=== PATIENT | female | born 1990 | race Caucasian/White ===

== ENCOUNTER 2016-08-20 19:51 | Emergency (ER) | payer OTHER ==
[~2016-08-20] VITALS: Ht 170.2 cm; Wt 76.2 kg
[2016-08-20] MEDS ORDERED: OMEGA PO (20:25)
[2016-08-20] MEDS ORDERED: amoxicillin (20:25)
[2016-08-20] MEDS ORDERED: prenatal PO (20:25)
[2016-08-21] MEDS ORDERED: ACETAMINOPHEN TAB 650MG DOSE (2X325MG) PO ONE (08:45)
--- NOTE | 2016-08-21 09:19 | REP ---
MRI LEFT KNEE WITHOUT CONTRAST: 08/21/2016 CLINICAL HISTORY: Severe knee pain and swelling after trauma. Patient 6 months . Request through the ED with patient signing consent form. TECHNIQUE: Sagittal T1, T2 STIR and gradient echo images, axial fat suppressed PD with coronal PD and fat suppressed PD sequences provided. FINDINGS: No prior study. The PCL shows intact fibers. There is abnormal increased signal in the ACL and I suggest a partial tear proximally. There is some fluid in the intercondylar notch. There is slight laxity of the ACL in its mid to distal fibers. Intrameniscal degenerative type signal in the posterior horn of the medial meniscus without communication to an articular surface but the intrameniscal signal extends to the posterior and the peripheral margin of the meniscus. No loose body. There is no chondromalacia or osteochondral defect. There is abnormal signal and a the tear of the MCL at its junction with the medial patellar retinaculum. Edema and fluid is seen on both sides of the MCL and retinaculum with the bowing of the retinaculum by bursal fluid adjacent to the peripheral margin of the medial femoral condyle. The lateral meniscus shows a parrot-beak type tear in the body the meniscus seen best on the sagittal images. There is no tear communicating to an articular surface from the substance of the anterior posterior horn. There is no loose body or chondromalacia. No osteochondral defect. There is a small bone bruise in the femoral condyle anterolaterally. There is also strain of the LCL fluid in the bursa along the lateral femoral condyle deep to the patellar retinaculum. Fluid tracks posteriorly along the lateral head of the gastrocnemius muscle. The popliteus tendon and proximal tibial - fibular articulation are normal. No patellar chondromalacia. Mild chondromalacia in the trochlea. Large suprapatellar effusion. There is no tear of the quadriceps or patellar tendons. IMPRESSION: 1. Acute injury with at least high grade partial tear of the ACL. PCL intact. 2. Meniscocapsular injury posterior horn medial meniscus without tear extending to the articular surface. Lateral meniscus with a parrot-beak type tear in the body of the meniscus. No displaced meniscal fragment or loose body. 3. Tears of the MCL and patellar retinaculum at the anterior band of the MCL. Strain of the LCL. 4. Large joint effusion. 5. No loose body. Extensor mechanism intact. Bone bruise lateral femoral condyle. No visible fracture. Signed by Aroldo Hines MD 08/21/2016 05:47 P
[2016-08-21] MEDS ORDERED: OXYC1TAB23 PO (09:27)
[2016-08-21 09:47] VITALS: BP 111/61
--- NOTE | 2016-08-22 10:28 | ED PDOC ---
Post-Departure Follow-Up ft [facility] faxed formal report of mri knee for fu Jose Maria Eldridge MD Aug 22, 2016 10:27
== END 2016-08-21 10:30 | disposition home or self-care (01) ==
LOC: M ED 21:07
DX: M25.462 Effusion, left knee (principal); S83.512A Sprain of anterior cruciate ligament of left knee, initial encounter; S83.412A Sprain of medial collateral ligament of left knee, initial encounter; W55.89XA Other contact with other mammals, initial encounter; Y92.830 Public park as the place of occurrence of the external cause; Y93.89 Activity, other specified; Y99.8 Other external cause status; Z79.899 Other long term (current) drug therapy; Z3A.01 Less than 8 weeks gestation of pregnancy

== ENCOUNTER → 2016-10-06 | Outpatient (CLI) | payer OTHER ==
[~2016-10-06] MED LIST: OMEGA PO; OXYC1TAB23 PO; amoxicillin; prenatal PO
[2016-10-06 17:26] LABS: BASO % 0.2 % (0.0-1.0); EOS # 0.2 K/mm3 (0.0-0.50); EOS % 1.7 % (0.0-3.0); LARGE UNSTAINED CELL # 0.1 K/mm3 (0.0-0.4); LARGE UNSTAINED CELL % 0.8 % (0.0-4.0); LYMPH # 1.5 K/mm3 (1.5-6.5); LYMPH % 15.6 % (24.0-44.0); MEAN CORPUSCULAR HEMOGLOBIN 32.5 pg (27.0-33.0); MEAN CORPUSCULAR HGB CONC 34.4 g/dl (32.0-36.5); MEAN CORPUSCULAR VOLUME 94.6 fl (80.0-96.0); MONO # 0.5 K/mm3 (0.0-0.8); MONO % 4.8 % (0.0-5.0); NEUTROPHILS # 7.5 K/mm3 (1.8-7.7); NEUTROPHILS % 76.9 % (36.0-66.0); PLATELET COUNT, AUTOMATED 236 k/mm3 (150-450); RED CELL DISTRIBUTION WIDTH 13.1 % (11.5-14.5); WHITE BLOOD COUNT 9.7 K/mm3 (4.0-10.0)
== END ==
LOC: M LAB 15:46
PROVIDERS: ATTEND Advanced Practice Midwife
DX: Z36 Encounter for antenatal screening of mother (principal); Z3A.00 Weeks of gestation of pregnancy not specified

== ENCOUNTER → 2016-11-17 | Outpatient (REF) | payer OTHER | LOC: M LAB REF 16:59 | PROVIDERS: ATTEND Advanced Practice Midwife | DX: Z34.83 Encounter for supervision of other normal pregnancy, third trimester (principal) ==

== ENCOUNTER 2016-12-13 12:44 | Inpatient (IN) | payer OTHER ==
[2016-12-13] VITALS (32 sets, daily range): BP systolic 100–142; BP diastolic 55–80
[~2016-12-13] VITALS: Ht 170.2 cm; Wt 82.0 kg
[2016-12-13 13:59] LABS: MEAN CORPUSCULAR HEMOGLOBIN 32.2 pg (27.0-33.0); MEAN CORPUSCULAR HGB CONC 35.2 g/dl (32.0-36.5); MEAN CORPUSCULAR VOLUME 91.6 fl (80.0-96.0); RED CELL DISTRIBUTION WIDTH 13.4 % (11.5-14.5); WHITE BLOOD COUNT 11.3 K/mm3 (4.0-10.0)
[2016-12-13] MEDS ORDERED: LR 800 ML IV ONE (19:00)
[2016-12-13] MEDS ORDERED: FENTANYL 2MCG/ML ROPIVACAINE 0.2% IN 0.9% NACL 200ML IVBAG As Ordered ONE (19:42)
[2016-12-13] MEDS ORDERED: REFRIGERATOR IV KEYS XX PRN (20:30)
[2016-12-13] MEDS ORDERED: ePHEDrine SULFATE 25 MG/5 ML(5MG/ML) SYRINGE IV PRN (20:30)
[2016-12-13] MEDS ORDERED: NALOXONE INJ 0.4 MG/1 ML VIAL (J2310) IV PRN (20:30)
[2016-12-13] MEDS ORDERED: EPIDURAL COMMENT XX SCH (20:30)
[2016-12-13] MEDS ORDERED: ONDANSETRON 4MG/2ML VIAL (J2405) IV PRN (20:30)
[2016-12-13] MEDS ORDERED: EPIDURAL/PCA KEYS XX PRN (20:30)
[2016-12-13] MEDS ORDERED: FENTANYL/ROPIVACAINE/NACL BAG 200 ML EPIDURAL SCH (20:30)
[2016-12-13] MEDS ORDERED: LACTATED RINGER'S 1000 ML IV PRN (20:30)
[2016-12-13] MEDS ORDERED: diphenhydrAMINE INJ 50MG/ML VIAL (J1200) IV PRN (20:30)
--- NOTE | 2016-12-13 20:48 | HPE ---
DATE OF ADMISSION: 12/13/2016 HISTORY: She is a 26-year-old 1, para zero female at 40 and 2/7 weeks gestation by last menstrual period (LMP) confirmed by nine week ultrasound, estimated date of confinement (EDC) 12/18/2016, who presents with regular contractions every 3-4 minutes for the last several hours. She denies vaginal bleeding. There is good movement. COURSE: The patient initiated care with [facility] at 29 weeks gestation. Prior care was at [facility]. She had no complications. MEDICAL HISTORY: She is a carrier for cystic fibrosis. SURGICAL HISTORY: 1. Right knee surgery. 2. [place] teeth removal. ALLERGIES: None. SOCIAL HISTORY: The patient is . She denies cigarettes, alcohol or drug use. FAMILY HISTORY: Noncontributory. PHYSICAL EXAMINATION: VITAL SIGNS: Blood pressure 124/76, pulse 84. GENERAL: She appears uncomfortable. HEAD/NECK: Normal. LUNGS: Clear. HEART: Regular rate and rhythm. ABDOMEN: Nontender, gravid. heart tones category one. STERILE VAGINAL EXAM: 3 cm, 100% effaced, -2 station, vertex. EXTREMITIES: Nontender. LABORATORY DATA: Blood type A positive. Rubella immune, RPR nonreactive. Hepatitis B and C negative. HIV negative. Diabetes screen 113. ASSESSMENT: A 26-year-old 1, para zero female at 40 and 2/7 weeks gestation presents in early labor. The patient is admitted on 12/13/2016.
[2016-12-13] MEDS ORDERED: PRENTAB9 PO (22:56)
[2016-12-13] MEDS ORDERED: IRON65TA PO (22:56)
[2016-12-13] MEDS ORDERED: ZOLO50TA PO (22:56)
[2016-12-14] VITALS (12 sets, daily range): BP systolic 91–129; BP diastolic 48–68
[2016-12-14] MEDS ORDERED: OXYTOCIN 30 UNITS IN 0.9% NaCl 500ML IV BAG (J2590) As Ordered ONE (01:43)
[2016-12-14] MEDS ORDERED: METHYLERGONOVINE MALEATE 0.2 MG TAB PO PRN (04:00)
[2016-12-14] MEDS ORDERED: ACETAMINOPHEN 500 MG TAB PO PRN (04:00)
[2016-12-14] MEDS ORDERED: MEASLES,MUMPS,RUBELLA VACCINE INJ (MMR-II) (90707) SC SCH (04:00)
[2016-12-14] MEDS ORDERED: DOCUSATE SODIUM 100 MG CAP PO PRN (04:00)
[2016-12-14] MEDS ORDERED: RHOGAM 300 MCG (1500 IU) INJ (J2790) IM SCH (04:00)
[2016-12-14] MEDS ORDERED: DIBUCAINE 1% OINTMENT 30GM TOP PRN (04:00)
[2016-12-14] MEDS ORDERED: ONDANSETRON 4MG/2ML VIAL (J2405) IV PRN (04:00)
[2016-12-14] MEDS ORDERED: OXYTOCIN DRIP 30 UNITS in APPROPRIATE DILUENT 1 EA IV ONE (04:00)
[2016-12-14 04:01] LABS: CORD GAS ABE A -2.5; CORD GAS HCO3 A 24.3 MEQ/L; CORD GAS O2 SAT A 16.6 %; CORD GAS PCO2 A 50.1 mmHg; CORD GAS PH A 7.304 UNITS; CORD GAS SBC A 20.5 MEQ/L; CORD GAS TCO2 A 25.9 MEQ/L
[2016-12-14 04:02] LABS: CORD GAS ABE V -2.8; CORD GAS HCO3 V 22.7 MEQ/L; CORD GAS PCO2 V 41.7 mmHg; CORD GAS PH V 7.353 UNITS; CORD GAS PO2 V 20.6 mmHg; CORD GAS SBC V 20.9 MEQ/L; CORD GAS TCO2 V 23.9 MEQ/L
[2016-12-14] MEDS: PRENATAL VITAMINS CHEWABLE TABLET PO SCH (09:32)
[2016-12-14] MEDS: IBUPROFEN 800 MG TAB PO PRN ×2 (15:40→23:43)
[2016-12-15 06:10] VITALS: BP 110/56
[2016-12-15] MEDS: PRENATAL VITAMINS CHEWABLE TABLET PO SCH (08:34)
--- NOTE | 2016-12-15 09:27 | DN ---
DATE: 12/14/2016 PREDELIVERY DIAGNOSIS: 40+ weeks gestation, labor. POSTDELIVERY DIAGNOSIS: 40+ weeks gestation, labor. PROCEDURE: Spontaneous vaginal delivery. CLEANING AND WASHING EQUIPMENT OPERATOR: Dr. Duran Salmon ANESTHESIA: Epidural. ESTIMATED BLOOD LOSS: 300 mL. FINDINGS: 8 pounds 0 ounce male . scores of 8 and 9 with light meconium present. DELIVERY SUMMARY: After a 1 hour second stage, the patient had spontaneous delivery of an 8 pounds 0 ounce male infant under epidural anesthesia, light meconium was noted. There was no nuchal cord. The shoulders delivered spontaneously with ease. The cried spontaneously and handed to the mother. The cord was doubly clamped and cut. The placenta delivered spontaneously and appeared to be intact. The patient received IV Pitocin immediately after delivery of the placenta. First degree perineal lacerations was repaired with #3-0 chromic in the usual fashion. Sponge and needle counts were correct.
[2016-12-15] MEDS ORDERED: TYLE325T5 PO (15:53)
[2016-12-15] MEDS ORDERED: MOTR200T44 PO (15:53)
== END 2016-12-15 16:20 | disposition home or self-care (01) | DRG 775 ==
LOC: M LDO 12:44 → M LDI 13:16 → M OBS 12-14 05:36
PROVIDERS: ADMIT Specialist; ATTEND Specialist
PROC: 10E0XZZ Delivery of Products of Conception, External Approach (ICD-10-PCS; principal; 2016-12-14)
PROC: 0HQ9XZZ Repair Perineum Skin, External Approach (ICD-10-PCS; 2016-12-14)
DX: O48.0 Post-term pregnancy (principal); Z3A.40 40 weeks gestation of pregnancy; O70.0 First degree perineal laceration during delivery; Z37.0 Single live birth

== ENCOUNTER → 2019-01-15 | Outpatient (REF) | payer OTHER ==
[~2019-01-15] MED LIST changes: +IRON65TA PO; +MOTR200T44 PO; +PRENTAB9 PO; +TYLE325T5 PO; +ZOLO50TA PO
== END ==
LOC: M LAB REF 12:08
PROVIDERS: ATTEND Physician Assistant
DX: J02.9 Acute pharyngitis, unspecified (principal)